=== PATIENT | male | born 1970 | race Caucasian/White ===

== ENCOUNTER → 2020-08-25 | Outpatient (CLI) | payer BC | LOC: SJCVCIMAG 07:18 | PROVIDERS: ATTEND Family Medicine | DX: M79.662 Pain in left lower leg (principal); M79.89 Other specified soft tissue disorders ==

== ENCOUNTER → 2020-08-30 | Outpatient (CLI) | payer OTHER | LOC: CAT 08:27 | PROVIDERS: ATTEND Family Medicine | DX: Z13.6 Encounter for screening for cardiovascular disorders (principal); I25.10 Atherosclerotic heart disease of native coronary artery without angina pectoris; E78.00 Pure hypercholesterolemia, unspecified ==